=== PATIENT | female | born 1965 ===

== ENCOUNTER 2017-10-14 11:40 | Inpatient (IN) | payer MEDICAID ==
[~2017-10-14] VITALS: Ht 165.1 cm; Wt 111.3 kg
[2017-10-14] MEDS ORDERED: ASPI-650 PO (12:20)
[2017-10-14] MEDS ORDERED: OMEP10CA4 PO (12:20)
[2017-10-14] MEDS ORDERED: PANT20TA3 PO (12:21)
[2017-10-14] MEDS ORDERED: RANI-276 PO (12:21)
[2017-10-14] MEDS ORDERED: CHOL200024 PO (12:22)
[2017-10-14] MEDS ORDERED: CYCL-259 PO (12:22)
[2017-10-14] MEDS ORDERED: TERB250T3 PO (12:22)
[2017-10-14] MEDS ORDERED: PREG50CA PO (12:22)
[2017-10-14] MEDS ORDERED: OXYC-302 PO (12:23)
[2017-10-14] MEDS ORDERED: DIPH12.532 PO (12:23)
[2017-10-14] MEDS ORDERED: INSU100C SQ-INSULIN (12:24)
[2017-10-14] MEDS ORDERED: AMPICILLIN/SULBACTAM 3 GM in SODIUM CHLORIDE 0.9% 100 ML IVPB ONE (12:30)
[2017-10-14] MEDS ORDERED: MORPHINE SULFATE 4 MG/ML, 1ML IV PRN (12:30)
[2017-10-14] MEDS ORDERED: MORPHINE SULFATE 4 MG/ML, 1ML ONE (12:30)
[2017-10-14] MEDS ORDERED: SODIUM CHLORIDE 0.9% 1,000ML IVBOLUS ONE (12:30)
[2017-10-14] MEDS ORDERED: VANCOMYCIN PER PHARMACY IV ONE (12:30)
[2017-10-14] MEDS ORDERED: VANCOMYCIN 2,000 MG in SODIUM CHLORIDE 0.9% 500 ML IV ONE (12:30)
[2017-10-14 13:03] LABS: BASOPHILS # (AUTO) 0.03 x10^3/uL (0-0.1); BASOPHILS % (AUTO) 1 % (0-1); EOSINOPHILS # (AUTO) 0.23 x10^3/uL (0-0.4); EOSINOPHILS % (AUTO) 4 % (1-7); LYMPHOCYTES # (AUTO) 2.34 x10^3/uL (1-3.4); LYMPHOCYTES % (AUTO) 38 % (22-44); MD NO; MEAN CORPUSCULAR HEMOGLOBIN 26.8 pg (27.0-34.8); MEAN CORPUSCULAR VOLUME 81.2 fL (80-100); MEAN PLATELET VOLUME 8.1 fL (7.4-10.4); MONOCYTES % (AUTO) 6 % (2-9); NEUTROPHILS # (AUTO) 3.24 x10^3/uL (1.8-6.8); NEUTROPHILS % (AUTO) 52 % (42-75); PLATELET COUNT 151 x10^3/uL (130-400); RED BLOOD COUNT 4.92 x10^6/uL (3.82-5.3)
[2017-10-14 13:11] LABS: ANION GAP 9 mmol/L (5-15); CALCIUM 8.1 mg/dL (8.5-10.1); CHLORIDE 98 mmol/L (98-107); CREATININE 0.93 mg/dL (0.55-1.02)
[2017-10-14] MEDS ORDERED: DIPHENHYDRAMINE 50 MG/ML, 1ML ONE (14:11)
[2017-10-14] MEDS ORDERED: DEXTROSE 4 GM TAB.CHEW PO PRN (15:00)
[2017-10-14] MEDS ORDERED: BISACODYL 10 MG SUPP PR PRN (15:00)
[2017-10-14] MEDS ORDERED: DEXTROSE 50%, 50ML SYRINGE IVPush PRN (15:00)
[2017-10-14] MEDS ORDERED: DIPHENHYDRAMINE 50 MG/ML, 1ML IVPush ONE (15:00)
[2017-10-14] MEDS ORDERED: ONDANSETRON 2MG/ML, 2ML IVPush PRN (15:00)
[2017-10-14] MEDS ORDERED: POLYETHYLENE GLYCOL 17 GM PACKET PO PRN (15:00)
[2017-10-14] MEDS ORDERED: DOCUSATE 100 MG CAPSULE PO PRN (15:00)
[2017-10-14] MEDS ORDERED: GLUCAGON 1 MG IM PRN (15:00)
[2017-10-14] MEDS ORDERED: ENALAPRILAT 1.25 MG/ML, 2ML IVPush PRN (15:00)
[2017-10-14 15:55] LABS: HEMOGLOBIN A1C 12.5 % (4.2-6.3)
[2017-10-14 16:04] LABS: HCT (SEDRATE) 39.9 % (34.6-47.8)
[2017-10-14] MEDS: INSULIN LISPRO 100 UNITS/ML, PEN SQ-INSULIN SCH ×2 (17:19→21:37)
[2017-10-14] MEDS: CYCLOBENZAPRINE 10 MG TABLET PO SCH ×2 (17:20→21:36)
[2017-10-14] MEDS: ENOXAPARIN 40 MG/0.4 ML SQ SCH (17:20)
[2017-10-14] MEDS: NS + 20MEQ KCL 1,000 ML IV SCH (17:21)
[2017-10-14] MEDS: AMPICILLIN/SULBACTAM 3 GM in SODIUM CHLORIDE 0.9% 100 ML IV SCH (18:01)
[2017-10-14 20:09] VITALS: BP 114/74
[2017-10-14] MEDS ORDERED: INSULIN GLARGINE 100 UNITS/ML, PEN SQ-INSULIN SCH (21:00)
[2017-10-14] MEDS ORDERED: INSULIN DETEMIR 100 UNITS/ML, PEN SQ-INSULIN SCH (21:00)
[2017-10-14] MEDS: SODIUM CHLORIDE FLUSH 10ML SYR IVF SCH ×2 (21:37→21:38)
[2017-10-15] MEDS: AMPICILLIN/SULBACTAM 3 GM in SODIUM CHLORIDE 0.9% 100 ML IV SCH ×4 (00:22→18:44)
[2017-10-15 01:33] VITALS: BP 110/74
[2017-10-15] MEDS ORDERED: OXYcodone/APAP 5/325MG TABLET PO PRN (04:35)
[2017-10-15 05:14] LABS: BASOPHILS # (AUTO) 0.01 x10^3/uL (0-0.1); BASOPHILS % (AUTO) 0 % (0-1); EOSINOPHILS % (AUTO) 3 % (1-7); LYMPHOCYTES # (AUTO) 1.36 x10^3/uL (1-3.4); LYMPHOCYTES % (AUTO) 36 % (22-44); MD NO; MEAN CORPUSCULAR HEMOGLOBIN 27.3 pg (27.0-34.8); MEAN CORPUSCULAR HGB CONC 33.5 g/dL (32.4-35.8); MEAN CORPUSCULAR VOLUME 81.4 fL (80-100); MEAN PLATELET VOLUME 7.9 fL (7.4-10.4); MONOCYTES # (AUTO) 0.22 x10^3/uL (0.2-0.8); MONOCYTES % (AUTO) 6 % (2-9); NEUTROPHILS % (AUTO) 55 % (42-75); PLATELET COUNT 129 x10^3/uL (130-400); RED BLOOD COUNT 4.65 x10^6/uL (3.82-5.3)
[2017-10-15] MEDS: NS + 20MEQ KCL 1,000 ML IV SCH (05:16)
[2017-10-15 05:21] LABS: CHLORIDE 108 mmol/L (98-107)
[2017-10-15 05:24] LABS: ANION GAP 7 mmol/L (5-15); CREATININE 0.64 mg/dL (0.55-1.02)
[2017-10-15] MEDS: ACETAMINOPHEN 325 MG TABLET PO PRN ×2 (06:48→15:06)
[2017-10-15 07:08] VITALS: BP 144/90
[2017-10-15] MEDS: CYCLOBENZAPRINE 10 MG TABLET PO SCH ×3 (08:48→20:47)
[2017-10-15] MEDS: PREGABALIN 25 MG CAPSULE PO SCH (08:48)
[2017-10-15] MEDS: CHOLECALCIFEROL 1,000 UNIT TABLET PO SCH (08:48)
[2017-10-15] MEDS: ASPIRIN 325 MG TABLET EC PO SCH (08:48)
[2017-10-15] MEDS: SODIUM CHLORIDE FLUSH 10ML SYR IVF SCH ×4 (08:49→20:47)
[2017-10-15] MEDS: INSULIN LISPRO 100 UNITS/ML, PEN SQ-INSULIN SCH ×4 (08:49→20:47)
[2017-10-15] MEDS: FAMOTIDINE 40 MG/5 ML ORAL SUSP PO SCH (08:49)
[2017-10-15] MEDS ORDERED: OXYcodone/APAP 5/325MG TABLET PO SCH (09:00)
[2017-10-15 13:26] VITALS: BP 144/88
[2017-10-15] MEDS: ENOXAPARIN 40 MG/0.4 ML SQ SCH (15:06)
[2017-10-15] MEDS: OXYcodone/APAP 10/325MG TABLET PO PRN (17:27)
[2017-10-15 20:00] VITALS: BP 112/76
[2017-10-15] MEDS ORDERED: INSULIN DETEMIR 100 UNITS/ML, PEN SQ-INSULIN SCH (21:00)
[2017-10-15] MEDS: CALCIUM CARBONATE 500 MG TAB.CHEW PO PRN (21:30)
[2017-10-16] MEDS: AMPICILLIN/SULBACTAM 3 GM in SODIUM CHLORIDE 0.9% 100 ML IV SCH ×4 (00:31→18:09)
[2017-10-16] MEDS: OXYcodone/APAP 10/325MG TABLET PO PRN ×3 (01:36→18:06)
[2017-10-16 03:44] VITALS: BP 151/87
[2017-10-16 05:43] LABS: BASOPHILS # (AUTO) 0.02 x10^3/uL (0-0.1); BASOPHILS % (AUTO) 1 % (0-1); EOSINOPHILS # (AUTO) 0.09 x10^3/uL (0-0.4); EOSINOPHILS % (AUTO) 2 % (1-7); LYMPHOCYTES # (AUTO) 1.83 x10^3/uL (1-3.4); LYMPHOCYTES % (AUTO) 47 % (22-44); MD NO; MEAN CORPUSCULAR HEMOGLOBIN 27.3 pg (27.0-34.8); MEAN CORPUSCULAR HGB CONC 33.9 g/dL (32.4-35.8); MEAN CORPUSCULAR VOLUME 80.6 fL (80-100); MEAN PLATELET VOLUME 7.9 fL (7.4-10.4); MONOCYTES # (AUTO) 0.22 x10^3/uL (0.2-0.8); MONOCYTES % (AUTO) 6 % (2-9); NEUTROPHILS # (AUTO) 1.72 x10^3/uL (1.8-6.8); NEUTROPHILS % (AUTO) 44 % (42-75); PLATELET COUNT 136 x10^3/uL (130-400); RED BLOOD COUNT 4.74 x10^6/uL (3.82-5.3)
[2017-10-16 05:50] LABS: ALBUMIN 2.6 g/dL (3.4-5.0); ANION GAP 8 mmol/L (5-15); CALCIUM 8.3 mg/dL (8.5-10.1); CHLORIDE 104 mmol/L (98-107); CREATININE 0.81 mg/dL (0.55-1.02)
[2017-10-16 07:29] VITALS: BP 161/96
[2017-10-16] MEDS: INSULIN LISPRO 100 UNITS/ML, PEN SQ-INSULIN SCH ×4 (08:07→20:24)
[2017-10-16] MEDS: CYCLOBENZAPRINE 10 MG TABLET PO SCH ×3 (08:07→20:23)
[2017-10-16] MEDS: INSULIN DETEMIR 100 UNITS/ML, PEN SQ-INSULIN SCH ×2 (08:07→20:24)
[2017-10-16] MEDS: FAMOTIDINE 40 MG/5 ML ORAL SUSP PO SCH (08:08)
[2017-10-16] MEDS: CHOLECALCIFEROL 1,000 UNIT TABLET PO SCH (08:08)
[2017-10-16] MEDS: PREGABALIN 25 MG CAPSULE PO SCH (08:08)
[2017-10-16] MEDS: ASPIRIN 325 MG TABLET EC PO SCH (08:08)
[2017-10-16] MEDS: SODIUM CHLORIDE FLUSH 10ML SYR IVF SCH ×4 (09:00→20:24)
[2017-10-16 16:45] VITALS: BP 163/93
[2017-10-16] MEDS: PREGABALIN 100 MG CAPSULE PO SCH ×2 (16:50→20:23)
[2017-10-16] MEDS: ENOXAPARIN 40 MG/0.4 ML SQ SCH (16:55)
[2017-10-16 19:47] VITALS: BP 131/68
[2017-10-16] MEDS ORDERED: VANCOMYCIN PER PHARMACY MC PRN (23:00)
[2017-10-16] MEDS ORDERED: PHARMACOKINETIC MONITORING MC PRN (23:00)
[2017-10-17] MEDS: AMPICILLIN/SULBACTAM 3 GM in SODIUM CHLORIDE 0.9% 100 ML IV SCH ×4 (00:25→19:22)
[2017-10-17] MEDS ORDERED: DIPHENHYDRAMINE 50 MG/ML, 1ML IVPush ONE (00:30)
[2017-10-17] MEDS ORDERED: VANCOMYCIN 2,000 MG in SODIUM CHLORIDE 0.9% 500 ML IV ONE (00:30)
[2017-10-17 02:41] VITALS: BP 145/92
[2017-10-17 05:24] LABS: BASOPHILS # (AUTO) 0.01 x10^3/uL (0-0.1); BASOPHILS % (AUTO) 0 % (0-1); EOSINOPHILS # (AUTO) 0.06 x10^3/uL (0-0.4); EOSINOPHILS % (AUTO) 2 % (1-7); LYMPHOCYTES # (AUTO) 1.61 x10^3/uL (1-3.4); LYMPHOCYTES % (AUTO) 41 % (22-44); MD NO; MEAN CORPUSCULAR HEMOGLOBIN 27.5 pg (27.0-34.8); MEAN CORPUSCULAR HGB CONC 33.8 g/dL (32.4-35.8); MEAN CORPUSCULAR VOLUME 81.1 fL (80-100); MEAN PLATELET VOLUME 7.8 fL (7.4-10.4); MONOCYTES # (AUTO) 0.25 x10^3/uL (0.2-0.8); MONOCYTES % (AUTO) 6 % (2-9); NEUTROPHILS % (AUTO) 51 % (42-75); PLATELET COUNT 133 x10^3/uL (130-400); RED BLOOD COUNT 4.61 x10^6/uL (3.82-5.3); RED CELL DISTRIBUTION WIDTH 14.9 % (9.6-15.2)
[2017-10-17 05:36] LABS: ANION GAP 6 mmol/L (5-15); CALCIUM 8.3 mg/dL (8.5-10.1); CHLORIDE 103 mmol/L (98-107)
[2017-10-17 05:37] LABS: CREATININE 0.76 mg/dL (0.55-1.02)
[2017-10-17] MEDS: OXYcodone/APAP 10/325MG TABLET PO PRN ×2 (06:43→14:52)
[2017-10-17 07:17] VITALS: BP 135/82
[2017-10-17] MEDS ORDERED: FAMOTIDINE 20 MG TABLET ONE (07:45)
[2017-10-17] MEDS: SODIUM CHLORIDE FLUSH 10ML SYR IVF SCH ×4 (07:58→20:28)
[2017-10-17] MEDS: INSULIN LISPRO 100 UNITS/ML, PEN SQ-INSULIN SCH ×4 (07:58→20:29)
[2017-10-17] MEDS: ASPIRIN 325 MG TABLET EC PO SCH (07:58)
[2017-10-17] MEDS: PREGABALIN 100 MG CAPSULE PO SCH ×3 (08:01→20:28)
[2017-10-17] MEDS: CYCLOBENZAPRINE 10 MG TABLET PO SCH ×3 (08:01→20:28)
[2017-10-17] MEDS: FAMOTIDINE 40 MG/5 ML ORAL SUSP PO SCH (08:01)
[2017-10-17] MEDS: CHOLECALCIFEROL 1,000 UNIT TABLET PO SCH (08:01)
[2017-10-17] MEDS: INSULIN DETEMIR 100 UNITS/ML, PEN SQ-INSULIN SCH ×2 (08:01→20:28)
[2017-10-17] MEDS: VANCOMYCIN 2,000 MG in SODIUM CHLORIDE 0.9% 500 ML IV SCH (13:43)
[2017-10-17] MEDS: DIPHENHYDRAMINE 50 MG/ML, 1ML IVPush SCH (13:43)
[2017-10-17 13:59] VITALS: BP 151/76
[2017-10-17] MEDS: ENOXAPARIN 40 MG/0.4 ML SQ SCH (16:28)
[2017-10-17 19:22] VITALS: BP 150/88
[2017-10-17] MEDS: CALCIUM CARBONATE 500 MG TAB.CHEW PO PRN (19:38)
[2017-10-17] MEDS: ACETAMINOPHEN 325 MG TABLET PO PRN (19:38)
[2017-10-18] MEDS: DIPHENHYDRAMINE 50 MG/ML, 1ML IVPush SCH ×2 (00:26→13:48)
[2017-10-18] MEDS: AMPICILLIN/SULBACTAM 3 GM in SODIUM CHLORIDE 0.9% 100 ML IV SCH ×4 (00:26→17:39)
[2017-10-18] MEDS: ACETAMINOPHEN 325 MG TABLET PO PRN ×2 (01:43→21:49)
[2017-10-18] MEDS: OXYcodone/APAP 10/325MG TABLET PO PRN ×3 (01:43→21:49)
[2017-10-18] MEDS: VANCOMYCIN 2,000 MG in SODIUM CHLORIDE 0.9% 500 ML IV SCH ×2 (01:51→14:38)
[2017-10-18 03:14] VITALS: BP 151/80
[2017-10-18 04:42] LABS: BASOPHILS # (AUTO) 0.02 x10^3/uL (0-0.1); BASOPHILS % (AUTO) 1 % (0-1); EOSINOPHILS # (AUTO) 0.08 x10^3/uL (0-0.4); EOSINOPHILS % (AUTO) 2 % (1-7); LYMPHOCYTES # (AUTO) 1.67 x10^3/uL (1-3.4); LYMPHOCYTES % (AUTO) 35 % (22-44); MD NO; MEAN CORPUSCULAR HEMOGLOBIN 27.3 pg (27.0-34.8); MEAN CORPUSCULAR HGB CONC 33.2 g/dL (32.4-35.8); MEAN PLATELET VOLUME 7.5 fL (7.4-10.4); MONOCYTES # (AUTO) 0.29 x10^3/uL (0.2-0.8); MONOCYTES % (AUTO) 6 % (2-9); NEUTROPHILS # (AUTO) 2.64 x10^3/uL (1.8-6.8); NEUTROPHILS % (AUTO) 56 % (42-75); PLATELET COUNT 149 x10^3/uL (130-400); RED BLOOD COUNT 4.58 x10^6/uL (3.82-5.3); RED CELL DISTRIBUTION WIDTH 15.2 % (9.6-15.2)
[2017-10-18 04:53] LABS: ANION GAP 5 mmol/L (5-15); CALCIUM 8.1 mg/dL (8.5-10.1); CHLORIDE 104 mmol/L (98-107)
[2017-10-18 04:54] LABS: CREATININE 0.78 mg/dL (0.55-1.02)
[2017-10-18] MEDS ORDERED: FAMOTIDINE 20 MG TABLET ONE (08:06)
[2017-10-18] MEDS: CYCLOBENZAPRINE 10 MG TABLET PO SCH ×3 (08:14→20:11)
[2017-10-18] MEDS: ASPIRIN 325 MG TABLET EC PO SCH (08:14)
[2017-10-18] MEDS: FAMOTIDINE 40 MG/5 ML ORAL SUSP PO SCH (08:15)
[2017-10-18] MEDS: INSULIN LISPRO 100 UNITS/ML, PEN SQ-INSULIN SCH ×4 (08:16→20:13)
[2017-10-18] MEDS: CHOLECALCIFEROL 1,000 UNIT TABLET PO SCH (08:16)
[2017-10-18] MEDS: PREGABALIN 100 MG CAPSULE PO SCH ×3 (08:16→20:11)
[2017-10-18] MEDS: SODIUM CHLORIDE FLUSH 10ML SYR IVF SCH ×4 (08:17→20:30)
[2017-10-18] MEDS: INSULIN DETEMIR 100 UNITS/ML, PEN SQ-INSULIN SCH ×2 (08:17→20:13)
[2017-10-18 08:39] VITALS: BP 141/91
[2017-10-18] MEDS: ENOXAPARIN 40 MG/0.4 ML SQ SCH (15:39)
[2017-10-18 17:05] VITALS: BP 145/95
[2017-10-18] MEDS: CALCIUM CARBONATE 500 MG TAB.CHEW PO PRN (20:11)
[2017-10-18 20:17] VITALS: BP 143/94
[2017-10-19] MEDS: AMPICILLIN/SULBACTAM 3 GM in SODIUM CHLORIDE 0.9% 100 ML IV SCH ×2 (00:53→06:03)
[2017-10-19] MEDS: DIPHENHYDRAMINE 50 MG/ML, 1ML IVPush SCH (01:00)
[2017-10-19 02:00] VITALS: BP 139/77
[2017-10-19 05:11] LABS: BASOPHILS # (AUTO) 0.02 x10^3/uL (0-0.1); BASOPHILS % (AUTO) 0 % (0-1); EOSINOPHILS # (AUTO) 0.09 x10^3/uL (0-0.4); EOSINOPHILS % (AUTO) 2 % (1-7); LYMPHOCYTES # (AUTO) 1.62 x10^3/uL (1-3.4); LYMPHOCYTES % (AUTO) 33 % (22-44); MD NO; MEAN CORPUSCULAR HEMOGLOBIN 27.2 pg (27.0-34.8); MEAN CORPUSCULAR HGB CONC 33.4 g/dL (32.4-35.8); MEAN CORPUSCULAR VOLUME 81.3 fL (80-100); MEAN PLATELET VOLUME 7.6 fL (7.4-10.4); MONOCYTES # (AUTO) 0.29 x10^3/uL (0.2-0.8); MONOCYTES % (AUTO) 6 % (2-9); NEUTROPHILS # (AUTO) 2.93 x10^3/uL (1.8-6.8); NEUTROPHILS % (AUTO) 59 % (42-75); PLATELET COUNT 153 x10^3/uL (130-400); RED BLOOD COUNT 4.56 x10^6/uL (3.82-5.3); RED CELL DISTRIBUTION WIDTH 14.9 % (9.6-15.2)
[2017-10-19 05:19] LABS: ANION GAP 6 mmol/L (5-15); CALCIUM 8.4 mg/dL (8.5-10.1); CHLORIDE 103 mmol/L (98-107)
[2017-10-19 05:21] LABS: CREATININE 0.77 mg/dL (0.55-1.02)
[2017-10-19] MEDS: OXYcodone/APAP 10/325MG TABLET PO PRN ×2 (06:03→10:28)
[2017-10-19 07:37] VITALS: BP 152/98
[2017-10-19] MEDS ORDERED: AMOX1TAB64 PO (08:12)
[2017-10-19] MEDS ORDERED: INSU100I11 SQ-INSULIN (08:12)
[2017-10-19] MEDS: CHOLECALCIFEROL 1,000 UNIT TABLET PO SCH (08:25)
[2017-10-19] MEDS: INSULIN LISPRO 100 UNITS/ML, PEN SQ-INSULIN SCH (08:25)
[2017-10-19] MEDS: ASPIRIN 325 MG TABLET EC PO SCH (08:26)
[2017-10-19] MEDS: CYCLOBENZAPRINE 10 MG TABLET PO SCH (08:26)
[2017-10-19] MEDS: PREGABALIN 100 MG CAPSULE PO SCH (08:26)
[2017-10-19] MEDS: SODIUM CHLORIDE FLUSH 10ML SYR IVF SCH ×2 (08:26)
[2017-10-19] MEDS: FAMOTIDINE 40 MG/5 ML ORAL SUSP PO SCH (08:27)
[2017-10-19] MEDS ORDERED: INSULIN DETEMIR 100 UNITS/ML, PEN SQ-INSULIN SCH (09:00)
== END 2017-10-19 11:03 | disposition home or self-care (01) | DRG 603 ==
LOC: ED 13:27 → EDIP 14:25 → 3NE 15:30 → DCLOUNGE 10-19 10:49
PROVIDERS: ADMIT Internal Medicine; ATTEND Internal Medicine
DX: L03.115 Cellulitis of right lower limb (principal); E10.42 Type 1 diabetes mellitus with diabetic polyneuropathy; E44.0 Moderate protein-calorie malnutrition; E10.65 Type 1 diabetes mellitus with hyperglycemia; E87.1 Hypo-osmolality and hyponatremia; Z68.41 Body mass index [BMI] 40.0-44.9, adult; K21.9 Gastro-esophageal reflux disease without esophagitis; F17.210 Nicotine dependence, cigarettes, uncomplicated; B95.7 Other staphylococcus as the cause of diseases classified elsewhere; R00.0 Tachycardia, unspecified; Z79.4 Long term (current) use of insulin; Z83.3 Family history of diabetes mellitus; Z90.710 Acquired absence of both cervix and uterus; Z91.14 Patient's other noncompliance with medication regimen; Z90.49 Acquired absence of other specified parts of digestive tract; Z79.899 Other long term (current) drug therapy
CPT/HCPCS: 36415; 80048; 80202; 82040; 82962; 83036; 83605; 84443; 85025; 85651; 86140; 87040; 93306; 96365; 96366; 96368; 96375; J0295; J1650; J3370; J3480; J1200; J1815; J7030; J7040